=== PATIENT | female | born 1990 | race Caucasian/White ===

== ENCOUNTER 2016-04-23 07:39 | Emergency (ER) | payer OTHER ==
[~2016-04-23] VITALS: Ht 172.7 cm; Wt 120.2 kg
[2016-04-23 07:52] VITALS: BP 144/82
[2016-04-23] MEDS ORDERED: KETOROLAC TROMETH 60MG/2ML VIAL IM ONE (08:15)
== END 2016-04-23 08:36 | disposition home or self-care (01) ==
LOC: ER 07:41
DX: S40.012A Contusion of left shoulder, initial encounter (principal); S40.011A Contusion of right shoulder, initial encounter; V49.49XA Driver injured in collision with other motor vehicles in traffic accident, initial encounter; Y93.89 Activity, other specified; Y99.8 Other external cause status; Y92.410 Unspecified street and highway as the place of occurrence of the external cause
CPT/HCPCS: 96372; J1885

== ENCOUNTER 2024-04-11 10:29 | Emergency (ER) | payer BC, OTHER ==
[~2024-04-11] VITALS: Ht 165.1 cm; Wt 90.4 kg
[2024-04-11 10:44] VITALS: BP 157/84; PULSE 103; RESP 17; TEMP 98.6; O2SAT 99
--- NOTE | 2024-04-11 10:56 | ED.PDOC ---
HPI Comments 33 y.o female presents to the ED for an evaluation of a laceration localized to the left thumb s/p cutting meat at home. Patient reports attempting to cut the fat off the meat and knife glided off the meat and onto the top of her numb. Bleeding was controlled at home. Patient is not up to date with tetanus vaccine. She denies any other symptoms or pain at this time. N o medical history or allergies reported by patient and also denies taking any daily medication. Chief Complaint: Laceration Time Seen by MD: 10:44 Primary Care Provider: none Reviewed Notes: Nurses Notes, Medications, Allergies Allergies: Coded Allergies: NO KNOWN ALLERGIES (Unverified , 04/23/16) Information Source: Patient Mode of Arrival: Ambulatory Severity: Moderate Severity of Laceration: Controlled Bleeding Complexity: Simple Timing: Hours Laceration Location: Digit #1 (left hand ) Mechanism: Knife Last Tetanus: > 5 Years Laceration Length (cm): 1 Skin Type: Linear Depth of Injury: Skin Tender: Mild Discharge: Clear Associated Signs and Symptoms: None Past Medical History PAST MEDICAL HISTORY: Denies Surgical History: [employer] History: No Pertinent [employer] History Family History Family History: Unknown Social History Smoker: Non-Smoker Alcohol: Denies ETOH Use Drugs: Denies Drug Use Lives In: Home Constitutional: denies: chills, diaphoresis, fatigue, fever, malaise, sweats, weakness, others EENTM: denies: blurred vision, double vision, ear bleeding, ear discharge, ear drainage, ear pain, ear ringing, eye pain, eye redness, hearing loss, mouth pain, mouth swelling, nasal discharge, nose bleeding, nose congestion, nose pain, photophobia, tearing, throat pain, throat swelling, voice changes, others Respiratory: denies: cough, hemoptysis, orthopnea, SOB at rest, shortness of breath, SOB with excertion, stridor, wheezing, others Cardiovascular: denies: chest pain, dizzy spells, diaphoresis, Dyspnea on exert ion, edema, irregular heart beat, left arm pain, lightheadedness, palpitations, PND, syncope, others Gastrointestinal: denies: abdomen distended, abdominal pain, blood streaked bowels, constipated, diarrhea, dysphagia, difficulty swallowing, hematemesis, melena, nausea, poor appetite, poor fluid intake, rectal bleeding, rectal pain, vomiting, others Genitourinary: denies: abnormal vagina bleeding, burning, dyspareunia, dysuria, flank pain, frequency, hematuria, incontinence, pain, , vagina discharge, urgency, others Neurological: denies: dizziness, fainting, headache, left sided numbness, left sided weakness, numbness, paresthesia, pre-existing deficit, right sided numbness, right sided weakness, seizure, speech problems, tingling, tremors, weakness, others Musculoskeletal: denies: back pain, gout, joint pain, joint swelling, muscle pain, muscle stiffness, neck pain, others Integumetry: reports: laceration (left thumb ); denies: bruises, change in color, change in hair/nails, dryness, lesions, lumps, rash, wounds, others Allergic/Immunocompromised: denies: Difficulty Healing, Frequent Infections, Hives, Itching, others Hematologic/Lymphatic: denies: anemia, blood clots, easy bleeding, easy bruising, swollen glands, others Endocrine: denies: excessive hunger, excessive sweating, excessive thirst, excessive urination, flushing, intolerance to cold, intolerance to heat, unexplained weight gain, unexplained weight loss, others Psychiatric: denies: anxiety, bipolar disorder, depression, hopeless, panic disorder, schizophrenia, sleepless, suicidal, others Physical Exam General Appearance: No Apparent Distress HEENT: Other (Pupils symmetric, no facial asymmetry) Neck: Full Range of Motion, Normal Inspection Respiratory: No Accessory Muscle Use, No Respiratory Distress Cardiovascular: Regular Rate/Rhythm Breast Exam: Deferred Gastrointestinal: Non Tender, Soft Genitalia: Deferred Pelvic: Deferred Rectal: Deferred Extremities: Normal range of motion, No pedal edema, Other (Left upper extremity neurovascularly intact. Superficial 1.5 cm left thumb laceration overlying the dorsal aspect of the proximal phalanx area) Neurologic: Alert (Oriented x4) Cerebellar Function: NOT DONE Reflexes: NOT DONE Skin: Dry, Normal Color, Warm, Other (Superficial 1.5 cm left thumb laceration overlying the dorsal aspect of the proximal phalanx area) Lymphatic: NOT DONE Was a procedure done? Was a procedure done?: Yes Sedation Sedation?: No Laceration Repair : Location Left thumb Length 1.5 cm Anesthetic: Nothing Laceration Repair Prep: Betadine, by Irrigation Laceration Repair Wound Comple: epidermis/dermis repair Laceration Repair: Dermabond Informed consent obtained: Yes Risks, benefits, and alternati: Yes Differential diagnosis Generic Laceration: Laceration X-Ray, Labs, Meds, VS Vital Signs Date Time Temp Pulse Resp B/P (MAP) Pulse Ox O2 Delivery O2 Flow Rate FiO2 04/11/24 10:44 103 17 99 Room Air* 0 21 04/11/24 10:44 98.6 103 17 157/84 (108) 99 98.6 04/11/24 10:42 98.6 103 17 157/84 (108) 99 Current Medications Medications (Trade) Dose Ordered Sig/Berna Route Start Time Stop Time Status Last Admin Diphtheria/ Tetanus/Acell Pertussis (Boostrix T-Dap) 0.5 ml ONCE ONCE IM 04/11/24 11:00 04/11/24 11:01 DC 04/11/24 11:16 X-Ray, Labs, Meds, VS Comment 33-year-old female with no significant past medical history presenting with a left thumb superficial laceration after accidentally cutting herself with a knife Vitals remarkable for heart rate 103, BP 157/84 Exam remarkable for a superficial 1.5 cm left thumb laceration overlying the dorsal aspect of the proximal phalanx area, left upper extremity neurovascularly intact. Treated with the following in the ED: Wound was irrigated with normal saline/Betadine solution and closed using tissue adhesive. Please see procedure note. Patient tolerated the procedure well. Tdap 0.5 mL IM was administered. On re-evaluation, patient was well-appearing, left upper extremity remained neurovascularly intact, patient stated she was comfortable. Patient appears stable for outpatient treatment of follow up with her primary physician in two days for a wound check. Time of 1ST Reevaluation: 10:55 Reevaluation 1ST: Unchanged Time of 2ND Reevaluation: 11:03 Reevaluation 2ND: Improved Patient Education/Counseling: Diagnosis, Treatment Family Education/Counseling: No Family Present Departure 1 Departure Time of Disposition: 11:00 Impression: Primary Impression: Laceration of thumb Qualified Codes: S61.012A - Laceration without foreign body of left thumb without damage to nail, initial encounter Disposition: HOME / SELF CARE / HOMELESS Condition: Stable Additional Instructions: Keep the wound area clean and dry. Do not apply oils or lotions to the glute area. The glue will come off by itself in about a week. Take [id number] Tylenol or ibuprofen for pain. Follow up with her primary doctor in two days for wound check. Return to ER for redness, swelling, worsening pain or any other concern. Discharged With: Self Critical Care Note Critical Care Time?: No Stability Stability form required: No I personally scribed for DINESH EDWARDS MD ([email or web address]) on 04/11/24 at 10:56. Electronically submitted by Lynne Sanchez ([facility]). DINESH EDWARDS MD Apr 11, 2024 10:56
[2024-04-11] MEDS: TETANUS-DIPTH-ACEL PERTUSSIS 0.5ML SYR Tdap IM ONE (11:16)
== END 2024-04-11 11:21 | disposition home or self-care (01) ==
LOC: ER 10:29
DX: S61.012A Laceration without foreign body of left thumb without damage to nail, initial encounter (principal); Z98.890 Other specified postprocedural states; W26.0XXA Contact with knife, initial encounter; Y93.89 Activity, other specified; Y92.89 Other specified places as the place of occurrence of the external cause; Y99.8 Other external cause status
CPT/HCPCS: 12001; 90471